=== PATIENT | female | born 1965 | race American Indian/Alaskan Native ===

== ENCOUNTER 2022-05-16 08:55 | Outpatient (CLI) | payer BC ==
--- NOTE | 2022-05-17 10:54 | Nuclear Medicine Report ---
Radioactive iodine uptake and thyroid scintigraphy INDICATION: History of thyroid nodules with FNA in 2006 TECHNIQUE: Dose / Agent / Route: 322.6 microcuries I-123 sodium iodide oral COMPARISON: Thyroid ultrasound 06/10/2007 FINDINGS: 4 hour uptake was 9.9 limits. 24-hour uptake was 28.2 which is within normal limits. Images show no obvious focal significant areas of increased or decreased activity. I do not see a def inite lesion corresponding to the previous left nodule which underwent FNA. IMPRESSION: Negative study Signer Name: Checo Keane MD Signed: 05/17/2022 10:50 AM Workstation Name: [id number]
== END 2022-05-16 08:56 | disposition home or self-care (01) ==
LOC: NM 08:55
PROVIDERS: ATTEND Internal Medicine
DX: E04.1 Nontoxic single thyroid nodule (principal)
CPT/HCPCS: 78012; A9516